=== PATIENT | male | born 1995 | race Caucasian/White ===

== ENCOUNTER 2016-08-02 12:46 | Emergency (ER) | payer OTHER ==
[~2016-08-02] VITALS: Ht 162.6 cm; Wt 75.0 kg
[2016-08-02 12:50] VITALS: Ht 162.6 cm; Wt 75.0 kg
--- NOTE | 2016-08-02 13:32 | RADRPT ---
PROCEDURE: XR Ankle. CLINICAL INDICATION: Pain TECHNIQUE: AP, oblique and lateral views of the right ankle were performed. COMPARISON: None. FINDINGS: There is normal mineralization and alignment. No fracture or osseous lesion is identified. The joint s are normal. No soft tissue abnormality is present. IMPRESSION: Unremarkable exam. RPTAT: [facility] .Suri Mo MD, MD Date Time Electronically viewed and signed by .Suri Mo MD, on 08/02/2016 13:32 .M/
--- NOTE | 2016-08-02 13:35 | RADRPT ---
PROCEDURE: CT L-S Spine without Contrast CLINICAL INDICATION: Fall 15 feet right leg is numb TECHNIQUE: Transaxial images were obtained through the lumbosacral spine on a multi sliced scanner without contrast. Sagittal and coronal re-formations were subsequently reformatted. One or more of the following dose reduction techniques were used: - Automated exposure control. - Adjustment of the mA and/or kV according to patient size. - Use of iterative reconstruction technique. Radiation dose: CTDIvol = 25.64 mGy; DLP = 830.47 mGy-cm. COMPARISON: None FINDINGS: Motion artifact results in degradation of several images with ghosting of the osseous structures mos t extensive at the superior L2 vertebral body. Osseous structures: Within the limitations no fracture or destructive process is identified. Alignment: There is a 16 degrees dextroscoliotic curve to the lumbar spine measured from superior L1 to inferior L4. There is straightening of the normal lordotic curvature in the lateral projection. No subluxation is evident. Disk spaces, endplates, and facet joints: The disk spaces are adequately maintained. There is a min imal broad-based disk bulge at L3-L4 not associated with stenosis to the central canal or tendon alyse t canal. There is a mild disk bulge at L4-L5 not associated with stenosis to the central canal or t endon root canal. There is a a 4 mm broad-based disk bulge at L5-S1 also not associated with signif icant stenosis to the central canal or tendon root canal. Soft tissues: Are unremarkable. IMPRESSION: 1. Motion artifact degrades the images. 2. 16 degrees dextroscoliotic curve to the lumbar spine with straightening of the normal lordotic c urvature without subluxation. 3. No discrete fracture or destructive process is identified. 4. Broad-based disk bulges noted at L3-L4, L4-L5 and to a greater extent L5-S1 not associated with significant stenosis to the central canal or tendon root canal. Physician Magda Date Time Electronically viewed and signed by Physician Magda on 08/02/2016 13:35 /
--- NOTE | 2016-08-02 13:37 | RADRPT ---
PROCEDURE: XR Right Foot CLINICAL INDICATION: Fall TECHNIQUE: AP, oblique, and lateral radiographs were submitted. COMPARISON: None FINDINGS: Osseous structures: appear well mineralized and intact with no fracture or destructive process iden tified. Joint spaces: are well maintained, with no significant spurring, erosion or joint effusion evident. Soft tissues: appear unremarkable. IMPRESSION: Unremarkable right foot. Physician Magda Date Time Electronically viewed and signed by Physician Magda on 08/02/2016 13:37 /
--- NOTE | 2016-08-02 14:30 | ERD ---
ER Documentation Chief Complaint Date/Time DATE: 08/02/16 TIME: 14:23 Chief Complaint High on Meth jumped out of a 2nd floor building ~15ft c/o rt leg pain HPI Patient is a 20-year-old male who reportedly used methamphetamine yesterday became paranoid and jumped from a second story floor window. He states that he landed on grass and rolled. He denies any head injury or loss of consciousness. Apparently he thought people were after him. He says his only injuries are his right ankle and right foot. He says he thinks that his right lower extremity might feel a little numb. The police brought him and they said that he was ambulating around without any difficulty. Patient denies any headache, neck pain, chest pain, dyspnea, abdominal pain, flank pain or back pain, nausea, vomiting, loss of bowel or bladder, focal weakness, abrasions, bruising, or lacerations. ROS All systems reviewed and are negative except as per history of present illness. Allergies Allergies: Coded Allergies: No Known Drug Allergies (Verified Allergy, Unknown, 03/19/15) PMhx/Soc Medical and Surgical Hx: pt denies Medical Hx, pt denies Surgical Hx Hx Alcohol Use: Yes (unknown when last used) Hx Substance Use: Yes (meth today unknown amount) Hx Tobacco Use: Yes Smoking Status: Current every day smoker FmHx Family History: No diabetes Physical Exam Vitals Vital Signs Date Time Temp Pulse Resp B/P Pulse Ox O2 Delivery O2 Flow Rate FiO2 08/02/16 12:50 98.4 128 22 136/94 100 Physical Exam Const: Well-developed well-nourished male sitting on the bed with handcuffs on Head: Atraumatic normocephalic Eyes: Normal Conjunctiva ENT: Normal External Ears, Nose and Mouth. Neck: Full range of motion..~ No meningismus. Resp: Clear to auscultation bilaterally Cardio: Regular rate and rhythm, no murmurs Abd: Soft, non tender, non distended. Normal bowel sounds Skin: No petechiae or rashes, no lacerations abrasions or bruising noted Back: No midline or flank tenderness, in particular no tenderness to palpation of his lumbar spine, no step-off deformities, full range of motion of his lumbar spine Ext: No cyanosis, or edema, patient reports mild tenderness to palpation of the right ankle and right foot, there are no obvious deformities noted, he does not have any bruising or swelling noted. Neur: Awake and alert oriented 3, GCS equals 15, motor strength is 5 out of 5 in both upper and lower extremities, during his visit in the emergency department he was up ambulating throughout the department without any difficulties. Psych: Normal Mood somewhat paranoid: Patient thinks people are out to get him Procedures/MDM Despite the patient's complaints there are no objective findings to suggest he has any neurological deficit at this time. It appears he is stable for discharge home and follow-up with his primary care physician. X-ray of the right ankle did not demonstrate any acute fracture or subluxation or dislocation. X-ray of the right foot did not reveal any evidence of acute fracture, subluxation, or dislocation. CT of the lumbar spine did not reveal any evidence of acute fracture, dislocation, or subluxation. He did however have a disc herniation noted at lumbar number vertebrae four. Departure Diagnosis: Primary Impression: Fall with no significant injury Encounter type: initial encounter Qualified Code: W19.XXXA - Fall with no significant injury, initial encounter Additional Impressions: Right ankle sprain Encounter type: initial encounter Involved ligament of ankle: unspecified ligament Qualified Code: S93.401A - Sprain of right ankle, unspecified ligament, initial encounter Drug abuse, amphetamine type Condition: Good Patient Instructions: Fall Prevention, Treating Ankle Sprains Additional Instructions: Weightbearing as tolerated. He may rest ice and elevate the leg as needed. He may also take Motrin and Tylenol for any ankle pain or swelling. Please see her primary care physician in follow-up if he continue to have ankle or foot pain. Please seek help for your drug addiction as at some point this could lead to your . Return to the emergency department for any new or worsening symptoms. ENRIQUETA AVENDANO Aug 02, 2016 14:30
[2016-08-02 15:09] VITALS: BP 137/78; PULSE 70; RESP 20; TEMP 98.4
== END 2016-08-02 15:10 | disposition home or self-care (01) ==
LOC: E/R 12:46
DX: S93.401A Sprain of unspecified ligament of right ankle, initial encounter (principal); R40.2242 Coma scale, best verbal response, confused conversation, at arrival to emergency department; F15.10 Other stimulant abuse, uncomplicated; F17.210 Nicotine dependence, cigarettes, uncomplicated; X50.9XXA Other and unspecified overexertion or strenuous movements or postures, initial encounter; Y92.9 Unspecified place or not applicable
CPT/HCPCS: 72131; 73610; 73630; Z7502